=== PATIENT | male | born 1980 | race Caucasian/White ===

== ENCOUNTER 2018-04-11 07:50 | Emergency (ER) | payer OTHER ==
[~2018-04-11] VITALS: Ht 170.2 cm; Wt 70.3 kg
[~2018-04-11 07:50] MED LIST: IMODIUM A-D2 MG PO; PEPCID40 MG PO; PHENERGAN25 MG PO
== END 2018-04-11 11:00 | disposition home or self-care (01) ==
LOC: ER 07:50
DX: K52.9 Noninfective gastroenteritis and colitis, unspecified (principal)